=== PATIENT | female | born 1965 | race Caucasian/White ===

== ENCOUNTER 2020-07-08 17:43 | Outpatient (CLI) | payer BC, SELFPAY | END 2020-07-08 17:44 | disposition home or self-care (01) | LOC: ANHLAB 17:44 | PROVIDERS: PCP Emergency Medicine; Visit Provider Emergency Medicine | DX: R35.0 Frequency of micturition (principal); R52 Pain, unspecified; Z78.9 Other specified health status | CPT/HCPCS: 87086 ==

== ENCOUNTER → 2021-06-16 12:05 | Outpatient (CLI) | payer BC, SELFPAY ==
--- NOTE | ~2021-06-16 | XR_ITS ---
EXAMINATION: XR lumbar spine 2-3V EXAM DATE: 06/16/2021 12:35 INDICATION: M54.9 - Dorsalgia, unspecified . TECHNIQUE: Lumber spine standing frontal, lateral, lateral L5-S1 projections for interpretation. The re is no prior study for comparison. FINDINGS: Moderate diffuse lumbar disc disease. Large endplate osteophytes left side of the L1-2 art iculation. Mild lumbar scoliosis. Sacrum, sacroiliac joints, sacral arcuate lines are intact. There a re no acute fractures identified. Moderate mid and lower lumbar facet arthropathy. Mild aortic arteri al sclerosis. Sacrum, sacroiliac joints, sacral arcuate lines are intact. The vertebral bodies are al igned in the AP dimension. IMPRESSION: Overall moderate lumbar spondylosis. Reviewed, dictated and finalized at location A. SFER AGENT
--- NOTE | ~2021-06-16 | US_ITS ---
EXAMINATION: US venous doppler LE RT DATE: 06/16/2021 12:26 INDICATION: Right lower limb pain TECHNIQUE: Ortez scale images without and with compression and Doppler images of the right lower extre mity veins were obtained. COMPARISON: None FINDINGS: The right common femoral vein, profunda femoral vein, femoral vein, popliteal vein, peronea l trunk, posterior tibial veins, and greater saphenous vein are patent. IMPRESSION: 1. Patent right lower extremity veins. No evidence of deep venous thrombosis. Reviewed, dictated and finalized at location A. E JOBBER
== END ==
PROVIDERS: PCP Emergency Medicine; Visit Provider Emergency Medicine
DX: M79.604 Pain in right leg (principal); M47.896 Other spondylosis, lumbar region
CPT/HCPCS: 72100; 93971

== ENCOUNTER 2021-07-18 10:17 | Outpatient (CLI) | payer BC, SELFPAY ==
--- NOTE | ~2021-07-18 | XR_ITS ---
XR lumbar spine 2-3V DATE: 07/18/2021 10:41 INDICATION: Left back pain radiating to left leg after fall 5 days ago TECHNIQUE: AP, lateral, coned lateral lumbosacral views COMPARISON: 06/16/2021 lumbar spine FINDINGS: There is minimal dextroscoliosis of the lumbar spine. Huge bridging osteophyte on the left at L1 to. There is mild/moderate degenerative spurring of the re maining lumbar interspaces with moderate to moderately severe loss of disc space height. No fracture or bone destruction. The pedicles are intact. The sacroiliac joints are intact. IMPRESSION: Mild rotatory dextroscoliosis Multilevel moderate to moderately severe degenerative disc disease Reviewed, dictated and finalized at location A. FIC TECHNICIAN
== END 2021-07-18 10:18 | disposition home or self-care (01) ==
PROVIDERS: PCP Emergency Medicine; Visit Provider Emergency Medicine
DX: S39.92XA Unspecified injury of lower back, initial encounter (principal); X58.XXXA Exposure to other specified factors, initial encounter; M51.36 Other intervertebral disc degeneration, lumbar region
CPT/HCPCS: 72100

== ENCOUNTER 2021-09-11 12:06 | Outpatient (CLI) | payer BC, SELFPAY ==
[2021-09-11 13:04] LABS: Alanine Aminotransferase 23 U/L (4-35); Albumin Level 4.3 g/dL (3.5-5.1); Alkaline Phosphatase 60 U/L (38-126); Anion Gap 6 mmol/L (8-16); Aspartate Amino Transferase 31 U/L (14-36); Bilirubin,Total 0.7 mg/dL (0.2-1.3); Blood Urea Nitrogen 14 mg/dL (7-17); Calcium 9.1 mg/dL (8.4-10.2); Carbon Dioxide 32 mmol/L (22-30); Chloride 102 mmol/L (98-107); Estimated Glomerular Filt Rate > 60; Glucose 91 mg/dL (65-110); Potassium 3.8 mmol/L (3.4-5.0); Sodium 140 mmol/L (137-145)
== END 2021-09-11 12:07 | disposition home or self-care (01) ==
LOC: ANHLAB 12:08
PROVIDERS: PCP Emergency Medicine; Visit Provider Emergency Medicine
DX: Z13.6 Encounter for screening for cardiovascular disorders (principal)
CPT/HCPCS: 36415; 80053

== ENCOUNTER → 2022-09-03 13:58 | Outpatient (CLI) | payer BC, SELFPAY ==
--- NOTE | ~2022-09-03 | MM_ITS ---
EXAMINATION: MM screening tc BI w rene HISTORY: Screening TECHNIQUE: Craniocaudal and mediolateral oblique 3-D tomosynthesis images were obtained and synthetic 2-D images were generated. CAD analysis was submitted and interpreted. COMPARISON: Comparison to multiple prior studies sequentially, with oldest reviewed study dated 07/20. BREAST PARENCHYMAL COMPOSITION: There are scattered areas of fibroglandular density. FINDINGS: There is no evidence of suspicious mass, calcification, or architectural distortion to sugg est malignancy in either breast. There has been no suspicious interval change. IMPRESSION: 1. No mammographic evidence of malignancy. 2. Recommend routine screening mammography in one year. BI-RADS Category 1: Negative Reviewed, dictated and finalized at location A.
== END ==
PROVIDERS: PCP Emergency Medicine; Visit Provider Emergency Medicine
DX: Z12.31 Encounter for screening mammogram for malignant neoplasm of breast (principal)
CPT/HCPCS: 77063; 77067

== ENCOUNTER 2023-01-16 16:03 | Emergency (ER) | payer BC, SELFPAY ==
--- NOTE | 2023-01-16 16:08 | ED.EAR ---
HPI - Ear Problem General Chief complaint: Ear Stated complaint: DIZZY/EAR FEELS IRRITATED Time Seen by Provider: 01/16/23 16:12 Source: patient Mode of arrival: ambulatory Limitations: no limitations History of Present Illness HPI Narrative: Romana is a 57-year-old female patient presenting to clinic today with complaints of feelings of dizziness as though she is unbalanced on her feet and feeling as though she has left ear pressure/irritation. She reports her symptoms started on Saturday and have gradually gotten worse. States she had eye surgery on Saturday. Thought the dizziness may be due to the anesthesia however her symptoms have not improved. She saw her eye surgeon and he cleared her eye for any issues/concern for her dizziness. Related Data Allergies Allergy/AdvReac Type Severity Reaction Status Date / Time Penicillins Allergy Unknown unknown Verified 01/16/23 16:15 Review of Systems Review of Systems: Pertinent positives per HPI. Patient denies any fever, chills, rash, headache, visual changes, cough, shortness of breath, chest pain, palpitations, nausea, vomiting, diarrhea, constipation, abdominal pain, or any urinary issues. [facility] Past Medical History Medical History Acute sinusitis, unspecified Basal cell carcinoma (BCC) of right forehead Body mass index [BMI] 31.0-31.9, adult (06/07/16) Body mass index [BMI] 32.0-32.9, adult (03/22/16) Body mass index [BMI] 33.0-33.9, adult (04/29/17) Body mass index [BMI] 34.0-34.9, adult (10/24/17) Cough with congestion of paranasal sinus Essential (primary) hypertension Folliculitis HLD (hyperlipidemia) Nasal congestion Palpitations Perforated left tympanic membrane on examination Plantar fasciitis, bilateral Strain of lumbar region Vitamin D deficiency Surgical History Surgical History H/O heart artery stent Family History Family History Mother Hypertension Acute myocardial infarction Cerebrovascular accident Father Acute myocardial infarction Family history of malignant neoplasm Social History Social History Smoking status: Never smoker Alcohol intake: never Comments At the time of my signature, I reviewed and agree with the nursing past medical, surgical, social, and family history. There is no relevant family history pertinent to the patient complaint. Exam Narrative: General: Well-developed, well nourished, in no apparent distress Head: Normocephalic, atraumatic Eyes: Pupils equally round and reactive to light bilaterally, EOM intact, sclera and conjunctive clear, no discharge, lids normal Ears: Right TMs intact and congestion, left TM bulging, intact, with fluid noted behind the TM, ear canals clear, no drainage, grossly hearing normal. Nose: Nares patent, clear discharge, no inflammation, no sinus tenderness. Mouth: Oral pharynx without lesions or masses, good dentition, MMM. Neck: Supple, trachea midline, no enlargement of anterior or posterior cervical nodes, no thyroid masses or goiter palpable. Cardio: Regular rate and rhythm, s1 and s2 normal, no murmur appreciated. Resp: Clear to auscultation bilaterally, no rhonchi, rales, wheezing or rubs Course Course Emergency Course: Portions of this record may have been created with voice recognition software. Level of Care: Express Care Visit Vital Signs Vital signs: Vital signs reviewed Medical Decision Making MDM Narrative Medical decision making narrative: At the time of visit patient is resting comfortably on the exam table. I suspect patient has left serous otitis which is probably likely causing her dizziness. Will send in prescription for prednisone and discussed use of fluticasone and an [id number] antihistamin
[2023-01-16 16:11] VITALS: BP 150/97; PULSE 78; RESP 16; TEMP 35.9; O2SAT 97
== END 2023-01-16 16:23 | disposition home or self-care (01) ==
PROVIDERS: Emergency Provider Nurse Practitioner Family; PCP Emergency Medicine
DX: H65.02 Acute serous otitis media, left ear (principal); R42 Dizziness and giddiness; I25.10 Atherosclerotic heart disease of native coronary artery without angina pectoris; Z95.5 Presence of coronary angioplasty implant and graft; I10 Essential (primary) hypertension; E78.5 Hyperlipidemia, unspecified; Z85.828 Personal history of other malignant neoplasm of skin; Z79.82 Long term (current) use of aspirin; E55.9 Vitamin D deficiency, unspecified
CPT/HCPCS: 99213; G0463

== ENCOUNTER 2023-07-09 16:45 | Emergency (ER) | payer BC, SELFPAY ==
[2023-07-09 17:06] VITALS: BP 138/66; PULSE 66; RESP 18; TEMP 36.3; O2SAT 99
--- NOTE | 2023-07-09 17:22 | ED.EAR ---
HPI - Ear Problem General Chief complaint: Ear Stated complaint: bilateral ear discomfort,congestion Source: patient Mode of arrival: ambulatory Limitations: no limitations History of Present Illness HPI Narrative: 58-year-old female presented for complaint of sinus congestion for about 2 weeks, since diagnosed with COVID. And bilateral ear pressure worsening over the past few days. Reports tinnitus. Patient denies shortness of breath, wheezing, nausea, vomiting, diarrhea, fevers or chills. MD Complaint: ear pain Related Data Home Medications Medication Instructions Recorded Confirmed atorvastatin 80 mg tablet 80 mg PO DAILY 06/21/23 07/09/23 diltiazem HCl 240 mg 240 mg PO DAILY 06/21/23 07/09/23 capsule,extended release 24 hr ergocalciferol (vitamin D2) 50 mcg 50 mcg PO DAILY 06/21/23 07/09/23 (2,000 unit) tablet fluticasone propionate 50 1 spray intranasal DAILY PRN 06/21/23 07/09/23 mcg/actuation nasal Allergy Symptoms spray,suspension (Flonase Allergy Relief) nitroglycerin 0.4 mg sublingual 0.4 mg sublingual Q5M PRN chest 06/21/23 07/09/23 tablet (Nitrostat) pain omeprazole 10 mg capsule,delayed 10 mg PO DAILY 06/21/23 07/09/23 release potassium chloride 20 mEq 20 meq PO DAILY 06/21/23 07/09/23 tablet,extended release sotalol 120 mg tablet 120 mg PO BID 06/21/23 07/09/23 apixaban 5 mg tablet (Eliquis) 5 mg PO BID 07/09/23 07/09/23 estradiol 0.01% (0.1 mg/gram) 0.1 applic vaginal DAILY 07/09/23 07/09/23 vaginal cream Allergies Allergy/AdvReac Type Severity Reaction Status Date / Time Penicillins AdvReac Mild Hives Verified 07/09/23 17:16 Review of Systems Review of Systems: CONSTITUTIONAL: Denies malaise, chills, or fever. EYES: Denies visual changes, redness, or discharge. ENT: Denies sore throat. Reports ear pain, rhinorrhea, congestion CARDIOVASCULAR: Denies chest pain, palpitations, or edema. RESPIRATORY: reports cough denies dyspnea. GASTROINTESTINAL: Denies abdominal pain, nausea, vomiting, diarrhea SKIN: Denies rash or itching. MUSCULOSKELETAL: Denies myalgia. NEUROLOGIC: Denies headache. All systems reviewed & are unremarkable except as noted in HPI and below PMFSH Past Medical History Medical History Acute sinusitis, unspecified Basal cell carcinoma (BCC) of right forehead Body mass index [BMI] 31.0-31.9, adult (06/07/16) Body mass index [BMI] 32.0-32.9, adult (03/22/16) Body mass index [BMI] 33.0-33.9, adult (04/29/17) Body mass index [BMI] 34.0-34.9, adult (10/24/17) Cough with congestion of paranasal sinus Essential (primary) hypertension Folliculitis HLD (hyperlipidemia) Nasal congestion Palpitations Perforated left tympanic membrane on examination Plantar fasciitis, bilateral Strain of lumbar region Vitamin D deficiency Surgical History Surgical History H/O heart artery stent Family History Family History Mother Hypertension Acute myocardial infarction Cerebrovascular accident Father Acute myocardial infarction Family history of malignant neoplasm Social History Social History Smoking status: Never smoker Alcohol intake: never Comments At time of signature, agree with nursing past medical, surgical, social and family history. There is no relevant family history pertinent to the presenting complaint Exam Narrative: GENERAL: Well-appearing EYES: PERRLA, conjunctivae clear ENT: Nasal congestion Mucous membranes moist. TMs pearly maradigaa with dull light reflex and effusion bilaterally; no tragal tenderness. Oropharynx not erythematous without lesions. Tonsils not enlarged and without exudate, no drooling, no hoarseness, no trismus, uvula midline. NECK: Supple. No lymphadenopathy CHEST: Clear to auscultation, breath so
== END 2023-07-09 18:07 | disposition home or self-care (01) ==
PROVIDERS: Emergency Provider Nurse Practitioner Family; PCP Emergency Medicine
DX: J06.9 Acute upper respiratory infection, unspecified (principal); I10 Essential (primary) hypertension; E78.5 Hyperlipidemia, unspecified; E55.9 Vitamin D deficiency, unspecified; Z95.5 Presence of coronary angioplasty implant and graft
CPT/HCPCS: 99213; G0463

== ENCOUNTER 2023-08-05 12:10 | Emergency (ER) | payer BC, SELFPAY ==
[2023-08-05 12:35] VITALS: BP 107/80; PULSE 80; RESP 16; TEMP 36.8; O2SAT 97
--- NOTE | 2023-08-05 13:18 | ED.URI ---
HPI - URI/Sore Throat General Chief Complaint: Upper Respiratory Infection Stated Complaint: Sore Throat;Ear Pain Time Seen by Provider: 08/05/23 13:10 Source: patient and RN notes reviewed Mode of arrival: ambulatory Limitations: no limitations History of Present Illness HPI Narrative: Patient presents today complaining of a 2 day history of sore throat, chills, left ear pain, postnasal drip, headache. Denies fever or cough. Currently rates her pain 6/10 and has been taking Tylenol and using Zicam with some mild relief. Related Data Home Medications Medication Instructions Recorded Confirmed atorvastatin 80 mg tablet 80 mg PO DAILY 06/21/23 08/05/23 diltiazem HCl 240 mg 240 mg PO DAILY 06/21/23 08/05/23 capsule,extended release 24 hr fluticasone propionate 50 1 spray intranasal DAILY PRN 06/21/23 08/05/23 mcg/actuation nasal Allergy Symptoms spray,suspension (Flonase Allergy Relief) nitroglycerin 0.4 mg sublingual 0.4 mg sublingual Q5M PRN chest 06/21/23 08/05/23 tablet (Nitrostat) pain omeprazole 10 mg capsule,delayed 10 mg PO DAILY 06/21/23 08/05/23 release potassium chloride 20 mEq 20 meq PO DAILY 06/21/23 08/05/23 tablet,extended release sotalol 120 mg tablet 120 mg PO BID 06/21/23 08/05/23 apixaban 5 mg tablet (Eliquis) 5 mg PO BID 07/09/23 08/05/23 estradiol 0.01% (0.1 mg/gram) 0.1 applic vaginal DAILY 07/09/23 08/05/23 vaginal cream Allergies Allergy/AdvReac Type Severity Reaction Status Date / Time Penicillins AdvReac Mild Hives Verified 08/05/23 12:29 Review of Systems Review of Systems: CONSTITUTIONAL: Denies body aches, fever, or sweats. + chills EYES: Denies visual changes, redness, or discharge. ENT: Denies rhinorrhea, congestion. + sore throat, left ear pain, postnasal drip CARDIOVASCULAR: Denies chest pain, palpitations, or edema. RESPIRATORY: Denies cough or dyspnea. GASTROINTESTINAL: Denies abdominal pain, nausea, vomiting, or diarrhea. GENITOURINARY: Denies dysuria or hematuria. SKIN: Denies rash, itching, or wounds. MUSCULOSKELETAL: Denies back pain, joint pain, or myalgia. NEUROLOGIC: Denies numbness, tingling, or weakness.+ headache PSYCH: Denies depression or anxiety. [facility], [facility] Past Medical History Medical History Acute sinusitis, unspecified Basal cell carcinoma (BCC) of right forehead Body mass index [BMI] 31.0-31.9, adult (06/07/16) Body mass index [BMI] 32.0-32.9, adult (03/22/16) Body mass index [BMI] 33.0-33.9, adult (04/29/17) Body mass index [BMI] 34.0-34.9, adult (10/24/17) Cough with congestion of paranasal sinus Essential (primary) hypertension Folliculitis HLD (hyperlipidemia) Nasal congestion Palpitations Perforated left tympanic membrane on examination Plantar fasciitis, bilateral Strain of lumbar region Vitamin D deficiency Surgical History Surgical History H/O heart artery stent Family History Family History Mother Hypertension Acute myocardial infarction Cerebrovascular accident Father Acute myocardial infarction Family history of malignant neoplasm Social History Social History Smoking status: Never smoker Alcohol intake: never Comments At time of signature, I have reviewed and agree with nursing past medical, surgical, social and family history unless otherwise noted. Please see nursing chart for further information. There is no relevant family history pertinent to the presenting complaint Exam Narrative: GENERAL: Well-appearing, well-nourished, and in no acute distress. HEAD: Normocephalic, atraumatic. EYES: EOMI. No redness or drainage. Conjunctivae normal. ENT: Mucous membranes pink and moist. Nares clear. No rhinorrhea. Right TM normal. Left TM erythematous a
== END 2023-08-05 13:38 | disposition home or self-care (01) ==
PROVIDERS: Emergency Provider Nurse Practitioner; PCP Emergency Medicine
DX: H66.92 Otitis media, unspecified, left ear (principal); J06.9 Acute upper respiratory infection, unspecified; I10 Essential (primary) hypertension; E78.5 Hyperlipidemia, unspecified; I25.10 Atherosclerotic heart disease of native coronary artery without angina pectoris; Z95.5 Presence of coronary angioplasty implant and graft; Z85.828 Personal history of other malignant neoplasm of skin
CPT/HCPCS: 87081; 87804; 87880; 99213; G0463

== ENCOUNTER 2023-09-30 10:19 | Outpatient (CLI) | payer BC, SELFPAY ==
--- NOTE | ~2023-09-30 | XR_ITS ---
EXAMINATION: XR thoracic spine 2V DATE: 09/30/2023 10:51 INDICATION: Dorsalgia, unspecified. TECHNIQUE: 3 views of thoracic spine on 4 radiographs were obtained. COMPARISON: None. FINDINGS: There is 3 degrees levocurvature of thoracic spine. There is mild chronic anterior wedging of T8, T9, T12, and L1 vertebral bodies. Intervertebral disc heights are normal. There are endplate o steophytes at multiple levels. There is multilevel facet joint osteoarthritis. IMPRESSION: 1. Mild thoracic spondylosis. Reviewed, dictated and finalized at location E.
--- NOTE | ~2023-09-30 | XR_ITS ---
EXAMINATION: XR lumbar spine 2-3V DATE: 09/30/2023 10:51 INDICATION: Low back pain, unspecified. TECHNIQUE: 3 views of lumbar spine were obtained. COMPARISON: None. FINDINGS: There is 7 degrees dextrocurvature of lumbar spine. Vertebral body heights are normal. Ther e is mildly decreased disc height at T12-L1, L1-L2, L2-L3, L3-L4, L4-L5, and L5-S1. There is multilev el facet joint osteoarthritis, severe at multiple levels. IMPRESSION: 1. Mild lumbar spondylosis. Reviewed, dictated and finalized at location E. IMPRESSION: 1. Mild lumbar spondylosis.
== END 2023-09-30 10:20 | disposition home or self-care (01) ==
LOC: ANHIMG 10:23
PROVIDERS: PCP Emergency Medicine; Visit Provider Emergency Medicine
DX: M47.894 Other spondylosis, thoracic region (principal); M47.896 Other spondylosis, lumbar region
CPT/HCPCS: 72070; 72100

== ENCOUNTER 2024-10-12 11:58 | Outpatient (CLI) | payer BC, SELFPAY ==
--- NOTE | ~2024-10-12 | MM_ITS ---
EXAMINATION: MM screening tc BI w rene HISTORY: Screening TECHNIQUE: Craniocaudal and mediolateral oblique 3-D tomosynthesis images were obtained and synthetic 2-D images were generated. CAD analysis was submitted and interpreted. COMPARISON: Comparison to multiple prior studies sequentially, with oldest reviewed study dated 10/2017. BREAST PARENCHYMAL COMPOSITION: Not Dense: The breasts are almost entirely fatty. FINDINGS: There is no evidence of suspicious mass, calcification, or architectural distortion to sugg est malignancy in either breast. There has been no suspicious interval change. IMPRESSION: 1. No mammographic evidence of malignancy. 2. Recommend routine screening mammography in one year. BI-RADS Category 1: Negative Reviewed, dictated and finalized at location A.
== END 2024-10-12 11:59 | disposition home or self-care (01) ==
PROVIDERS: Visit Provider Emergency Medicine
DX: Z12.31 Encounter for screening mammogram for malignant neoplasm of breast (principal)
CPT/HCPCS: 77063; 77067